=== PATIENT | female | born 1995 | race Caucasian/White ===

== ENCOUNTER → 2024-03-13 10:11 | Outpatient (BNVA) | payer OTHER, SELFPAY | PROVIDERS: PCP Registered Nurse; Visit Provider Registered Nurse | DX: Z13.6 Encounter for screening for cardiovascular disorders (principal); F41.9 Anxiety disorder, unspecified | CPT/HCPCS: 80053; 84443; 85025 ==

== ENCOUNTER 2025-01-23 15:56 | Inpatient (IN) | payer OTHER, SELFPAY ==
[2025-01-23] VITALS (13 sets, daily range): BP systolic 113–123; BP diastolic 69–81; PULSE 81–122; TEMP 37; O2SAT 100
--- NOTE | 2025-01-23 18:06 | PM.OPHPUD ---
Labor & Delivery H&P Update Date of Procedure: January 23, 2025 Date H&P Performed: 01/23/25 Changes to previous documentation: None. Patient was noted to have spontaneous rupture membranes in the office today. Admission Diagnosis: 1. 29-year-old 3 para 2-0-0-2 at 39 weeks estimated gestational age. 2. History of section Planned procedure: Trial of labor after section Other information: The patient is a pleasant 29-year-old female who was seen in my office today. During her visit she was checked and her membranes were stripped. While checking her,, her membranes spontaneously ruptured. Clear fluid was noted. At that point she was sent to the hospital to induce for labor. While in the office, she was not having any contractions. She has received consistent care during her . Her dates are based on a first trimester ultrasound. Her blood type is O+. Her antibody screen is negative. She is rubella immune. She was GBS negative. She passed her glucose screen. The remainder of her infectious disease profile was within normal limits. Related Problem List Diagnoses 1. 39 weeks gestation of : 2. Spontaneous rupture of membranes: A&P Assessment and plan 1. 39 weeks gestation of : We have discussed the risks and alternatives to a trial of labor after section. We have discussed the risk of uterine rupture. We have also discussed the risks of vaginal delivery versus section. We have discussed these issues at multiple appointments and the patient had no further questions regarding the benefits and risks of each option. Status: Acute 2. Spontaneous rupture of membranes: Status: Acute PDMP PDMP Reviewed: Not Reviewed
[2025-01-23 20:48] LABS: Hematocrit 37.3 % (36-47); Hemoglobin 11.80 g/dL (11.27-16.99); Mean Corpuscular HGB Conc 31.6 g/dL (30-55); Mean Corpuscular Hemoglobin 24.6 pg (27-33); Mean Corpuscular Volume 77.7 fl (85-98); Nucleated Red Blood Cells % 0 %; Platelet Count 296 10^3/cmm (157-399); Red Blood Count 4.80 10^6/uL (3.85-5.65); White Blood Count 9.96 10^3/uL (3.29-11.43)
[2025-01-23] MEDS: oxytocin 30 UNIT/500 ML BAG IV (23:42)
[2025-01-24] VITALS (74 sets, daily range): BP systolic 97–149; BP diastolic 55–95; PULSE 73–133; RESP 16–20; TEMP 36.4–36.8; O2SAT 96–100
[2025-01-24] MEDS: lidocaine 2% INJ 20 mL INJECTION (10:18)
--- NOTE | 2025-01-24 10:32 | P.PCNOB_ITS ---
Delivery Note: Date of delivery: January 24, 2025 Pre-delivery diagnoses: 1. 29-year-old 3 para 2-0-0-2 a t 39 weeks estimated gestational age who presented with spontaneous rupture membranes 2. Desires trial of labor after cesarea n section Post-delivery diagnoses: Status post Procedure: Spontaneous Delivering Physician: Nico Montilla Estimated blood loss (mL): 150 Pre-Delivery Course: The patient had spontaneous rupture membranes before arriving at the hospital. She arrived to the hospital or after discussing options, we elected to allow her to see how her body would respond by going to labor without Pitocin. She did not make significant change, and her contractions did not become significant without Pitocin. She was then placed on Pitocin. She then progressed to complete without difficulty. Delivery: DELIVERY: The patient progressed to complete without difficulty. She delivered a male with a weight of 7 pounds 10 ounces with Apgars of 9, 10. The baby was delivered from the PRICILA position and placed on the mother's abdomen. The cord was then clamped and cut. There was no nuchal cord. There was no meconium. Th e placenta and 3 vessel cord were delivered intact shortly thereafter. The perineum and vaginal vault were carefully examined. A small second-degree posterior midline tear was noted. It was repaired with 3-0 Vicryl in usual fashion after anesthetizing the area with 2% lidocaine. Both the mother and the baby were in stable condition. Post-Delivery Status: Good A&P Assessment and plan 1. (vaginal after ): I anticipate routine care. 2. 39 weeks gestation of : 3. Spontaneous rupture of membranes: PDMP PDMP Reviewed: Not Reviewed Coding Level of Care Code Acute Code for Chg Fwd Diagnoses (vaginal after ) O34.219 39 weeks gestation of Z3A.39 Spontaneous rupture of membranes
[2025-01-24] MEDS: benzocaine-menthol 78 gm Canister 1 SPRAY TOPICAL (14:28)
[2025-01-25 00:13] LABS: Hematocrit 26.6 % (36-47); Hemoglobin 8.50 g/dL (11.27-16.99); Mean Corpuscular HGB Conc 32.0 g/dL (30-55); Mean Corpuscular Hemoglobin 24.6 pg (27-33); Mean Corpuscular Volume 76.9 fl (85-98); Platelet Count 245 10^3/cmm (157-399); Red Blood Count 3.46 10^6/uL (3.85-5.65); White Blood Count 14.58 10^3/uL (3.29-11.43)
--- NOTE | 2025-01-25 08:25 | P.DS_ITS ---
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 (vaginal after ): 2. 39 weeks gestation of : 3. Spontaneous rupture of membranes: Reason for Visit Reason for Visit: Labor Hospital Course Hospital Course The patient presented to the hospital with spontaneous rupture membranes. Pitocin was added. She then progressed to complete and had an unremarkable vaginal delivery of a healthy male . Her course was also unre markable. Her bleeding was within normal limits. She breast-fed well. Her pain was well-controlled. Information Peripartum Data: Infant Delivery Method: Vaginal Physical Exam Narrative: The patient is alert. She appears comfortable. Her heart has a regular rate and rhythm with no murmurs appreciated. Lungs are clear to auscultation bilaterally. Her fundus is firm and below the umbilicus. Discharge Data Studies Completed and Pending Laboratory Results WBC 14.58 10^3/uL (3.29-11.43) H 01/24/25 00:01 RBC 3.46 10^6/uL (3.85-5.65) L 01/24/25 00:01 Hgb 8.50 g/dL (11.27-16.99) L 01/24/25 00:01 Hct 26.6 % (36-47) L 01/24/25 00:01 MCV 76.9 fl (85-98) L 01/24/25 00:01 MCH 24.6 pg (27-33) L 01/24/25 00:01 MCHC 32.0 g/dL (30-55) 01/24/25 00:01 RDW 14.1 % (12.1-15.1) 01/24/25 00:01 Plt Count 245 10^3/cmm (157-399) 01/24/25 00:01 MPV 11.7 fL (7.4-10.4) H 01/24/25 00:01 Neut % (Auto) 70.0 % 01/23/25 20:37 Lymph % (Auto) 20.7 % 01/23/25 20:37 Alpine % (Auto) 6.0 % 01/23/25 20:37 Eos % (Auto) 2.3 % 01/23/25 20:37 Baso % (Auto) 0.4 % 01/23/25 20:37 Neut # (Auto) 6.97 10^3/uL (1.8-7.7) 01/23/25 20:37 Lymph # (Auto) 2.1 10^3/uL (0.8-4.8) 01/23/25 20:37 Alpine # (Auto) 0.6 10^3/uL (0.2-0.9) 01/23/25 20:37 Eos # (Auto) 0.2 10^3/uL (0.0-0.8) 01/23/25 20:37 Baso # (Auto) 0.0 10^3/uL (0.0-0.1) 01/23/25 20:37 Nucleated RBC % (auto) 0 % 01/23/25 20:37 Nucleated RBCs # 0.0 /100WBC 01/23/25 20:37 Blood Type O Positive 01/23/25 20:37 Rho(D) Type Rh positive 01/23/25 20:37 Antibody Screen Negative 01/23/25 20:37 Vitals Last Vital Signs Temp 98.1 F 01/24/25 20:25 Pulse 93 01/24/25 20:25 Resp 16 01/24/25 20:25 BP 125/74 01/24/25 20:25 Pulse Ox 99 01/24/25 09:37 O2 Del Method Room Air 01/23/25 15:55 Results Labs OB ([facility]): Blood Type O Positive 01/23/25 Antibody Screen Negative 01/23/25 Hct, (36-47) 26.6 % L 01/24/25 Hgb, (11.27-16.99) 8.50 g/dL L 01/24/25 Rho(D) Type Rh positive 01/23/25 Plt Count, (157-399) 245 10^3/cmm 01/24/25 TSH, (0.27-4.20) 2.22 uIU/mL 03/13/24 Discharge Plan Discharge Patient Disposition: Home Condition: Stable Prescriptions: New ibuprofen 800 mg Tablet 800 mg PO TID Qty: 45 0RF Continued PNV no.58-iron bisgly-folic ac 10-400 mg-mcg Capsule 1 cap PO DAILY Discharge Order = DC NOW: Discharge Order (Routine); Ordered 01/25/25 Ordered By: Nico Montilla Referrals: Nico Montilla MD [Physician, Family Practice] - 03/07/25 11:00 am Discharge Diet: Usual diet Discharge Activity: Limit activity as instructed Patient Instructions: Depression (DC), Opioid Safety (DC), Preeclampsia and Eclampsia After Delivery (GEN), Hemorrhage (DC), OB Discharge Report, OB Food/Drug Interaction Guide, OB Care at Home, Opioid Safety, OB Vaginal Deliveries, Patient Portal & Ellen Instructions, Abnormal Bleeding Discharge Attestations IMPORT/EXPORT [employer] FORWARDER Time Spent in Discharge Care*: less than 30 min Coding Level of Care Code Acute Code for Chg Fwd Diagnoses (vaginal after ) O34.219 39 weeks gestation of Z3A.39 Spontaneous rupture of membranes
[2025-01-25 10:00] VITALS: BP 123/79; PULSE 86; RESP 16; TEMP 36.9
[2025-01-25 14:41] VITALS: BP 121/75; PULSE 105; RESP 16; TEMP 36.6; TEMP 36.7; O2SAT 99
--- NOTE | 2025-01-25 14:45 | PC.NURSE ---
this nurse went to answer pt emergency light and pt was lighted headed standing by toilet with large blood clot, pt stated she was feeling better after sitting down on toilet. This nurse walker pt back to bed and got VS. This nurse weighed clot and it was 110ml
[2025-01-25 18:36] VITALS: BP 130/87; PULSE 97; RESP 16; TEMP 36.6; O2SAT 99
== END 2025-01-25 18:39 | disposition home or self-care (01) | DRG 807 ==
LOC: OPOB 16:00 → OBGYN 16:27 → OPOB 01-24 05:23 → OBGYN 01-24 05:23
PROVIDERS: Admitting Provider Family Medicine; PCP Registered Nurse; Visit Provider Family Medicine
DX: O34.211 Maternal care for low transverse scar from previous cesarean delivery (principal); Z37.0 Single live birth; O70.1 Second degree perineal laceration during delivery; Z3A.39 39 weeks gestation of pregnancy; N85.8 Other specified noninflammatory disorders of uterus
CPT/HCPCS: 36415; 59025; 59409; 85025; 85027; 86850; 86900; J2590; J7121; J9999